=== PATIENT | male | born 1985 | race Two or more races ===

== ENCOUNTER 2020-01-10 20:33 | Emergency (ER) | payer MEDICAID, OTHER ==
[~2020-01-10] VITALS: Ht 170.2 cm; Wt 83.9 kg
[2020-01-10] MEDS ORDERED: MORPHINE SULFATE 4 MG/ML SYR/VIAL ONE (21:09)
[2020-01-10] MEDS ORDERED: ONDANSETRON HCL 4 MG/2 ML VIAL ONE (21:09)
[2020-01-10] MEDS ORDERED: ONDANSETRON HCL 4 MG/2 ML VIAL IV ONE (21:15)
[2020-01-10] MEDS ORDERED: MORPHINE SULFATE 4 MG/ML SYR/VIAL IV ONE (21:15)
[2020-01-10] MEDS ORDERED: ETOMIDATE (2MG/ML) 20ML VIAL IV ONE ×3 (22:30→23:00)
[2020-01-10] MEDS ORDERED: MIDAZOLAM HCL 5 MG/ML-1ML VIAL ONE (23:05)
[2020-01-10] MEDS ORDERED: MIDAZOLAM HCL 5 MG/ML-1ML VIAL IV ONE (23:15)
[2020-01-11 02:54] VITALS: BP 128/60
== END 2020-01-11 02:56 | disposition home or self-care (01) ==
LOC: EDBD 20:33 → ER 20:33
DX: S43.005A Unspecified dislocation of left shoulder joint, initial encounter (principal); X58.XXXA Exposure to other specified factors, initial encounter; Y93.89 Activity, other specified; Y92.89 Other specified places as the place of occurrence of the external cause; Y99.8 Other external cause status
CPT/HCPCS: 23650; 73020; 73030; 99285; J2250; J2270; J2405